=== PATIENT | female | born 1985 | race Caucasian/White ===

== ENCOUNTER 2022-01-04 19:31 | Emergency (ER) | payer OTHER ==
[~2022-01-04] VITALS: Ht 157.4 cm; Wt 80.7 kg
[2022-01-04] MEDS ORDERED: DIVALPROEX SOD500 M1 PO (19:43)
[2022-01-04 20:17] LABS: BILIRUBIN Negative (Negative); BLOOD Negative (Negative); CLARITY Clear (Clear); COLOR Yellow (Yellow); GLUCOSE Negative (Negative); KETONE Trace (Negative); LEUKO ESTERASE Negative (Negative); NITRITE Negative (Negative); SPECIFIC GRAVITY 1.015 (1.001-1.030)
[2022-01-04 20:29] LABS: BASO % 0.5 % (0.0-1.0); EOS # 0.1 10*3/uL (0.0-0.4); EOS % 0.9 % (1.0-4.0); LYMPH # 2.6 10*3/uL (1.3-4.4); LYMPH % 47.1 % (27.0-41.0); MEAN CELL VOLUME 92.9 fl (81.0-99.0); MEAN CORPUSCULAR HGB 29.2 pg (27.0-31.0); MEAN CORPUSCULAR HGB CONC 31.4 g/dl (33.0-37.0); MEAN PLATELET VOLUME 9.6 fl (9.6-12.3); MONO # 0.6 10*3/uL (0.1-1.0); MONO % 10.8 % (3.0-9.0); NEUT # 2.2 10*3/uL (2.3-7.9); NEUT % 40.5 % (47.0-73.0); PLATELET COUNT AUTOMATED 267 10*3/uL (130-400); RED BLOOD COUNT 3.12 10*6/uL (4.10-5.10); RED CELL DISTRI WIDTH 12.6 % (0-14.5); WHITE BLOOD COUNT 5.5 10*3/uL (4.8-10.8)
[2022-01-04 20:29] LABS: EPITHELIAL CELLS 0-2; RBC 0-2 rbc/hpf (0-2)
[2022-01-04 20:47] LABS: ALKALINE PHOSPHATASE 45 U/L (45-117); BUN 12 mg/dl (7-24); CHLORIDE 112 mmol/L (98-107); LIPASE 131 U/L (73-393); POTASSIUM 3.6 mmol/L (3.5-5.1); SGOT/AST 4 IU/L (3-35); SGPT/ALT 13 U/L (12-78); SODIUM 145 mmol/L (136-145); TOTAL PROTEIN 5.6 gm/dL (6.4-8.2)
[2022-01-04] MEDS ORDERED: NEXIUM40 MG PO (22:19)
== END 2022-01-04 22:46 | disposition home or self-care (01) ==
LOC: ED 19:31
PROVIDERS: Physician Assistant
DX: K29.70 Gastritis, unspecified, without bleeding (principal); Z88.8 Allergy status to other drugs, medicaments and biological substances

== ENCOUNTER 2022-05-09 17:36 | Emergency (ER) | payer OTHER ==
[~2022-05-09] VITALS: Ht 157.4 cm; Wt 78.9 kg
[~2022-05-09 17:36] MED LIST: BENTYL10 MG PO; BUSPAR5 MG PO; Carafate1 GM PO; DIVALPROEX SOD500 M1 PO; EFFEXOR XR150 M1 PO; HYDROCODONE-AC1 EAC1 PO; NEXIUM40 MG PO; PANTOPRAZOLE SO40 MG PO; PEPCID20 MG PO; RA CENTRAL VIT PO; VITAMIN D3125 MCG PO; WELLBUTRIN XL150 MG PO; XANAX0.5 MG PO; ZOFRAN ODT4 MG SL; ZOFRAN4 MG PO
[2022-05-09 18:40] LABS: BILIRUBIN Negative (Negative); BLOOD 3+ (Negative); CLARITY Cloudy (Clear); COLOR Orange (Yellow); GLUCOSE Negative (Negative); KETONE Negative (Negative); LEUKO ESTERASE 3+ (Negative); NITRITE Negative (Negative); PH 7.5 (4.5-8.0); SPECIFIC GRAVITY 1.015 (1.001-1.030)
[2022-05-09 19:16] LABS: RBC 21-30 rbc/hpf (0-2)
[2022-05-09 19:28] LABS: BASO # 0.1 10*3/uL (0.0-0.1); BASO % 0.3 % (0.0-1.0); EOS % 0.2 % (1.0-4.0); HEMATOCRIT 29.3 % (37.0-47.0); LYMPH # 2.5 10*3/uL (1.3-4.4); LYMPH % 17.5 % (27.0-41.0); MEAN CELL VOLUME 85.2 fl (81.0-99.0); MEAN CORPUSCULAR HGB 26.5 pg (27.0-31.0); MEAN CORPUSCULAR HGB CONC 31.1 g/dl (33.0-37.0); MEAN PLATELET VOLUME 9.1 fl (9.6-12.3); MONO % 6.8 % (3.0-9.0); NEUT # 10.8 10*3/uL (2.3-7.9); NEUT % 74.9 % (47.0-73.0); PLATELET COUNT AUTOMATED 333 10*3/uL (130-400); RED BLOOD COUNT 3.44 10*6/uL (4.10-5.10); RED CELL DISTRI WIDTH 14.9 % (0-14.5); WHITE BLOOD COUNT 14.4 10*3/uL (4.8-10.8)
[2022-05-09 19:47] LABS: ALKALINE PHOSPHATASE 58 U/L (46-116); BUN 10 mg/dl (9-23); CHLORIDE 105 mmol/L (98-107); POTASSIUM 3.9 mmol/L (3.4-5.1); SGPT/ALT 11 U/L (10-49)
[2022-05-09] MEDS ORDERED: PYRIDIUM200 M1 PO (22:33)
[2022-05-09] MEDS ORDERED: CEPHALEXIN500 M1 PO (22:33)
== END 2022-05-09 22:57 | disposition home or self-care (01) ==
LOC: ED 17:36
PROVIDERS: Nurse Practitioner Family
DX: N39.0 Urinary tract infection, site not specified (principal); Z88.5 Allergy status to narcotic agent; Z88.8 Allergy status to other drugs, medicaments and biological substances; Z90.49 Acquired absence of other specified parts of digestive tract; Z98.51 Tubal ligation status; F10.90 Alcohol use, unspecified, uncomplicated

== ENCOUNTER 2023-07-12 03:00 | Emergency (ER) | payer OTHER ==
[~2023-07-12] VITALS: Ht 157.4 cm; Wt 73.5 kg
[~2023-07-12 03:00] MED LIST changes: +CEPHALEXIN500 M1 PO; +PYRIDIUM200 M1 PO
[2023-07-12 03:16] LABS: BASO % 0.4 % (0.0-1.0); EOS # 0.1 10*3/uL (0.0-0.4); HEMATOCRIT 38.5 % (37.0-47.0); LYMPH # 2.4 10*3/uL (1.3-4.4); LYMPH % 27.1 % (27.0-41.0); MEAN CORPUSCULAR HGB 31.4 pg (27.0-31.0); MEAN CORPUSCULAR HGB CONC 31.7 g/dl (33.0-37.0); MEAN PLATELET VOLUME 8.8 fl (9.6-12.3); MONO % 10.7 % (3.0-9.0); NEUT # 5.4 10*3/uL (2.3-7.9); NEUT % 60.7 % (47.0-73.0); PLATELET COUNT AUTOMATED 297 10*3/uL (130-400); RED BLOOD COUNT 3.89 10*6/uL (4.10-5.10); RED CELL DISTRI WIDTH 12.1 % (0-14.5)
[2023-07-12 03:37] LABS: ALKALINE PHOSPHATASE 57 U/L (46-116); BUN 15 mg/dl (9-23); CHLORIDE 107 mmol/L (98-107); POTASSIUM 3.6 mmol/L (3.4-5.1); SGPT/ALT 9 U/L (5-49); TOTAL PROTEIN 6.5 gm/dL (6.0-8.0)
[2023-07-12] MEDS ORDERED: methylPREDNISolone sod succ 125 MG VIAL IM ONE (06:10)
== END 2023-07-12 06:22 | disposition home or self-care (01) ==
LOC: ED 03:00
PROVIDERS: Internal Medicine
DX: R07.89 Other chest pain (principal); R07.81 Pleurodynia; Z88.6 Allergy status to analgesic agent; Z88.8 Allergy status to other drugs, medicaments and biological substances; Z90.49 Acquired absence of other specified parts of digestive tract; Z98.51 Tubal ligation status; Z98.890 Other specified postprocedural states

== ENCOUNTER 2024-07-18 22:37 | Emergency (ER) | payer OTHER ==
[~2024-07-18] VITALS: Ht 157.4 cm; Wt 72.1 kg
[2024-07-18] MEDS ORDERED: LAMOTRIGINE100 MG PO (22:43)
[2024-07-18] MEDS ORDERED: TRAZODONE100 MG PO (22:43)
[2024-07-18] MEDS ORDERED: ARIPIPRAZOLE10 MG PO (22:44)
[2024-07-18] MEDS ORDERED: MINIPRESS2 M1 PO (22:44)
[2024-07-18] MEDS ORDERED: 'CLONIDINE0.1 MG PO (22:44)
[2024-07-18] MEDS ORDERED: MIXED AMPHETAMI25 MG PO (22:44)
[2024-07-18] MEDS ORDERED: LAMOTRIGINE25 M1 PO (22:45)
[2024-07-18] MEDS ORDERED: Prochlorperazine Edisylate 10 MG/2 ML VIAL IV ONE (23:55)
[2024-07-18] MEDS ORDERED: SODIUM CHLORIDE 0.9% 1,000 ML IV ONE (23:55)
[2024-07-19 00:20] LABS: BASO % 0.2 % (0.0-1.0); EOS % 0.2 % (1.0-4.0); HEMATOCRIT 34.5 % (37.0-47.0); MEAN CELL VOLUME 100.3 fl (81.0-99.0); MEAN CORPUSCULAR HGB 31.4 pg (27.0-31.0); MEAN CORPUSCULAR HGB CONC 31.3 g/dl (33.0-37.0); MEAN PLATELET VOLUME 8.8 fl (9.6-12.3); MONO # 0.6 10*3/uL (0.1-1.0); MONO % 4.9 % (3.0-9.0); NEUT # 9.8 10*3/uL (2.3-7.9); NEUT % 80.4 % (47.0-73.0); PLATELET COUNT AUTOMATED 270 10*3/uL (130-400); RED BLOOD COUNT 3.44 10*6/uL (4.10-5.10); RED CELL DISTRI WIDTH 12.3 % (0-14.5); WHITE BLOOD COUNT 12.1 10*3/uL (4.8-10.8)
[2024-07-19 00:36] LABS: BUN 11 mg/dl (9-23); CHLORIDE 109 mmol/L (98-107); POTASSIUM 3.6 mmol/L (3.4-5.1)
[2024-07-19] MEDS ORDERED: LORazepam 1 MG TAB SL ONE (01:00)
== END 2024-07-19 01:41 | disposition home or self-care (01) ==
LOC: ED 22:37
PROVIDERS: Emergency Medicine
DX: L56.8 Other specified acute skin changes due to ultraviolet radiation (principal); F41.9 Anxiety disorder, unspecified; F32.A Depression, unspecified; G43.919 Migraine, unspecified, intractable, without status migrainosus; Z98.84 Bariatric surgery status; Z88.6 Allergy status to analgesic agent; Z88.8 Allergy status to other drugs, medicaments and biological substances; Z90.49 Acquired absence of other specified parts of digestive tract; Z79.899 Other long term (current) drug therapy; W89.1XXA Exposure to tanning bed, initial encounter; Y93.89 Activity, other specified; Y92.89 Other specified places as the place of occurrence of the external cause; Y99.8 Other external cause status